=== PATIENT | male | born 1990 | race Caucasian/White ===

== ENCOUNTER 2018-11-23 11:24 | Emergency (ER) | payer OTHER ==
[2018-11-23 11:31] VITALS: BP 142/91; PULSE 70; TEMP 97.6; BMI 27.7
--- NOTE | 2018-11-23 13:45 | PDOC ---
History of Present Illness - General Chief Complaint: Pain Stated Complaint: CHEST PAIN Time Seen by Provider: 11/23/18 12:32 History Source: Patient Exam Limitations: No Limitations Past History - Travel Traveled outside of the country in the last 30 days: No Close contact w/someone who was outside of country & ill: No - Past Medical History Allergies/Adverse Reactions: Allergies Allergy/AdvReac Type Severity Reaction Status Date / Time No Known Allergies Allergy Verified 11/23/18 11:31 Home Medications: Ambulatory Orders Ibuprofen 600 mg PO Q6H #30 tablet 11/23/18 COPD: No - Psycho Social/Smoking Cessation Hx Smoking History: Never smoked Review of Systems - Review of Systems Able to Perform ROS?: Yes Comments:: 11/23/18 13:40 CONSTITUTIONAL: Absent: fever, chills, diaphoresis, generalized weakness, malaise, loss of appetite HEENT: Absent: rhinorrhea, nasal congestion, throat pain, throat swelling, difficulty swallowing, mouth swelling, ear pain, eye pain, visual Changes CARDIOVASCULAR: Present: chest pain Absent: loss of consciousness, palpitations, irregular heart rate, peripheral edema RESPIRATORY: Absent: cough, shortness of breath, dyspnea with exertion, orthopnea, wheezing, stridor, hemoptysis GASTROINTESTINAL: Absent: abdominal pain, abdominal distension, nausea, vomiting, diarrhea, constipation, melena, hematochezia GENITOURINARY: Absent: dysuria, frequency, urgency, hesitancy, hematuria, flank pain, genital pain MUSCULOSKELETAL: Absent: myalgia, arthralgia, joint swelling SKIN: Absent: rash, itching, pallor HEMATOLOGIC/IMMUNOLOGIC: Absent: easy bleeding, easy bruising, lymphadenopathy, frequent infections ENDOCRINE: Absent: unexplained weight gain, unexplained weight loss, heat intolerance, cold intolerance NEUROLOGIC: Absent: headache, focal weakness or paresthesias, dizziness, unsteady gait, seizure, mental status changes, bladder or bowel incontinence PSYCHIATRIC: Absent: anxiety, depression, suicidal or homicidal ideation, hallucinations. Is the patient limited Lithuanian proficient: No *Physical Exam - Vital Signs Last Vital Signs Temp Pulse Resp BP Pulse Ox 97.6 F 70 18 142/91 99 11/23/18 11:29 11/23/18 11:29 11/23/18 11:29 11/23/18 11:29 11/23/18 11:29 - Physical Exam Comments: 11/23/18 13:40 GENERAL: Well developed, well nourished. Awake and alert. No acute distress. HEENT: Normocephalic, atraumatic. PERRLA, EOMI. No conjunctival pallor. Sclera are non- icteric. Moist mucous membranes. Oropharynx is clear. NECK: Supple. Full ROM. No JVD. Carotid pulses 2+ and symmetric, without bruits. No thyromegaly. No lymphadenopathy. CARDIOVASCULAR: Regular rate and rhythm. No murmurs, rubs, or gallops. Distal pulses are 2+ and symmetric. PULMONARY: No evidence of respiratory distress. Lungs clear to auscultation bilaterally. No wheezing, rales or rhonchi. ABDOMINAL: Soft. Non-tender. Non-distended. No rebound or guarding. No organomegaly. Normoactive bowel sounds. MUSCULOSKELETAL TTP of the L chest wall at ribs 6-8. Normal range of motion at all joints. No bony deformities or tenderness. No CVA tenderness. EXTREMITIES: No cyanosis. No clubbing. No edema. No calf tenderness. SKIN: Warm and dry. Normal capillary refill. No rashes. No jaundice. NEUROLOGICAL: Alert, awake, appropriate. Cranial nerves 2-12 intact. No deficits to light touch and temperature in face, upper extremities and lower extremities. No motor deficits in the in face, upper extremities and lower extremities. Normoreflexic in the upper and lower extremities. Normal speech. Toes are down- going bilaterally. Gait is normal without ataxia. PSYCHIATRIC: Cooperative. Good eye contact. Appropriate mood and affect. ED Treatment Course - RADIOLOGY Radiology Studies Ordered: Category Date Time Status CHEST PA & LAT [RAD] Stat Radiology 11/23/18 12:43 Completed Medical Decision Making - Medical Decision Making 11/23/18 13:41 The patient is a 27 y/o M who presents to the ER with one week of chest pain. The patient states he noticed it starting after he was cleaning his apartment. He also notes the pain got worse after he moved to a new apartment. States he was moving heavy boxes and furniture. He states the pain is worse when he take a deep breath. Denies fevers, chills, cough, difficulty breathing, nausea and vomiting. A/P: atypical chest pain EKG: Rate: 64 BPM, NSR. Early repol. QTc: 383. Normal axis. No acute ST-T wave changes CXR: negative for acute chest pathology Pain is reproducible on exam along the L chest wall between ribs 6-8 Likely a muscle spasm; dc home with supportive therapy and PCP follow up I discussed the physical exam findings, ancillary test results and final diagnoses with the patient. I answered all of the patient's questions. The patient was satisfied with the care received and felt comfortable with the discharge plan and treatment plan. The Patient agrees to follow up with the primary care physician/specialist within 24-72 hours. Return precautions were given. Discharge - Discharge Information Problems reviewed: Yes Clinical Impression/Diagnosis: Atypical chest pain Condition: Stable Disposition: HOME - Admission No - Follow up/Referral Referrals: Shaggy Ross MD [Primary Care Provider] - - Patient Discharge Instructions Patient Printed Discharge Instructions: DI for Atypical Chest Pain Additional Instructions: You were evaluated for your chest pain today It is most likely muscular in nature Take the Motrin with food as directed. Avoid strenuous activity until your symptoms have resolved Use the incentive spirometer once an hour Follow up with your primary care doctor this week. Return to the ER for worsening pain, palpitations, lightheadedness, or if you have any changes in your symptoms - Post Discharge Activity Work/Back to School Note: Back to Work
[2018-11-23] MEDS ORDERED: IBUPROFEN 600 MG TABLET (FP) PO ONE ×2 (13:49→13:58)
--- NOTE | 2018-11-23 16:44 | EKG ---
Test Reason : Blood Pressure : / mmHG Vent. Rate : 064 BPM Atrial Rate : 064 BPM P-R Int : 154 ms QRS Dur : 088 ms QT Int : 372 ms P-R-T Axes : 055 078 054 degrees QTc Int : 383 ms NORMAL SINUS RHYTHM EARLY REPOLARIZATION NORMAL ECG NO PREVIOUS ECGS AVAILABLE Confirmed by DOROTHY TRAVIS MD ([id number]) on 11/23/2018 4:43:45 PM Referred By: Confirmed By:DOROTHY TRAVIS MD
== END 2018-11-23 14:32 | disposition home or self-care (01) ==
LOC: JERFT 11:24
DX: R07.89 Other chest pain (principal); X50.9XXA Other and unspecified overexertion or strenuous movements or postures, initial encounter; Y93.E6 Activity, residential relocation; Y92.89 Other specified places as the place of occurrence of the external cause; Y99.8 Other external cause status
CPT/HCPCS: 71046-TC-FY; 93005; 93010; 99281-25

== ENCOUNTER 2020-04-21 20:05 | Emergency (ER) | payer OTHER ==
[2020-04-21 20:13] VITALS: BP 143/81; PULSE 68; TEMP 98; BMI 27.6
== END 2020-04-21 22:29 | disposition home or self-care (01) ==
LOC: JER 20:05
DX: R10.30 Lower abdominal pain, unspecified (principal)
CPT/HCPCS: 99281-25

== ENCOUNTER 2020-04-29 12:25 | Emergency (ER) | payer OTHER ==
[2020-04-29 12:33] VITALS: BP 150/83; PULSE 78; TEMP 98.9; BMI 29.9
== END 2020-04-29 13:39 | disposition home or self-care (01) ==
LOC: JERFT 12:25
DX: M79.641 Pain in right hand (principal)
CPT/HCPCS: 73130-TC-RT-FY; 99283-25

== ENCOUNTER 2021-02-26 23:22 | Emergency (ER) | payer OTHER ==
[2021-02-26 23:37] VITALS: BP 151/99; PULSE 61; TEMP 97.4; BMI 28.2
[2021-02-27] MEDS ORDERED: IBUPROFEN 400 MG TABLET (FP) PO ONE ×2 (01:39→02:37)
[2021-02-27 01:50] LABS: BASO % 0.8 % (0-2.0); EOS % 2.2 % (0-4.5); HEMATOCRIT 46.3 % (35.4-49); HEMOGLOBIN 15.8 GM/dL (11.7-16.9); MCH 30.2 pg (25.7-33.7); MEAN CELL VOLUME 88.7 fl (80-96); MEAN PLT VOLUME 8.1 fl (7.5-11.1); MONO % 8.5 % (3.8-10.2); NEUT % 43.5 % (42.8-82.8); PLATELET COUNT 292 10^3/uL (134-434); RBC 5.22 M/mm3 (4.00-5.60); RDW 12.7 % (11.9-15.9); WHITE BLOOD COUNT 6.1 K/mm3 (4.0-10.0)
[2021-02-27 02:10] LABS: CALCIUM 9.1 mg/dL (8.5-10.1)
[2021-02-27 02:11] LABS: ALBUMIN 4.1 g/dl (3.4-5.0); BLOOD UREA NITROGEN 12.7 mg/dL (7-18)
[2021-02-27 02:14] LABS: CREATININE 1.1 mg/dL (0.55-1.3)
[2021-02-27 02:15] LABS: BILIRUBIN,TOTAL 1.4 mg/dL (0.2-1); TOT PROT 7.9 g/dl (6.4-8.2)
== END 2021-02-27 02:43 | disposition home or self-care (01) ==
LOC: JER 23:22
DX: M79.672 Pain in left foot (principal)
CPT/HCPCS: 36415; 80053; 85025; 87086; 99283-25